=== PATIENT | male | born 1945 | race Caucasian/White ===

== ENCOUNTER → 2016-09-18 | Outpatient (CLI) | payer BC | LOC: US 13:28 | DX: R10.9 Unspecified abdominal pain (principal); R31.9 Hematuria, unspecified ==

== ENCOUNTER → 2016-09-30 | Outpatient (CLI) | payer BC | LOC: CT 08:39 → LAB 08:39 → CT 09:00 | DX: N28.89 Other specified disorders of kidney and ureter (principal); D51.0 Vitamin B12 deficiency anemia due to intrinsic factor deficiency; R31.9 Hematuria, unspecified; Q61.00 Congenital renal cyst, unspecified; R10.9 Unspecified abdominal pain; N28.1 Cyst of kidney, acquired | CPT/HCPCS: 36415; 82565; 84520; J7050; Q9962 ==